=== PATIENT | male | born 1985 | race Caucasian/White ===

== ENCOUNTER 2023-08-08 16:05 | Emergency (ER) | payer BC, SELFPAY ==
[2023-08-08 16:10] VITALS: BP 143/96; PULSE 81; RESP 18; TEMP 36.1; O2SAT 97; BMI 40.2
--- NOTE | 2023-08-08 16:38 | ED_ITS ---
HPI - Eye Problem General Chief complaint: Eye Problems Stated complaint: R eye injury Time Seen by Provider: 08/08/23 16:21 History of Present Illness HPI Narrative: This 38-year-old male comes in with an injury to his right eye. He was working on a deck and a crowbar flipped up and hit him in the right eye. He reports some blurry vision and arrives with a little bit of blood in the lower aspect of the anterior chamber of his right eye. He does not have any difficulty moving his eyes and there is no sign of swelling, tearing, or scleral erythema. Related Data Home Medications ?Medication ?Instructions ?Recorded ?Confirmed fluoxetine 40 mg capsule 40 mg PO DAILY 08/08/23 08/08/23 lisinopril 20 1 tab PO DAILY 08/08/23 08/08/23 mg-hydrochlorothiazide 25 mg tablet Previous Rx's ?Medication ?Instructions ?Recorded atropine 1 % eye drops 1 drp ophthalmic (eye) TID #5 mL 08/08/23 brimonidine 0.2 % eye drops 1 drp ophthalmic (eye) TID #5 mL 08/08/23 prednisolone acetate 1 % eye 1 drp ophthalmic (eye) TID #5 mL 08/08/23 drops,suspension Allergies Allergy/AdvReac Type Severity Reaction Status Date / Time Sulfa (Sulfonamide Allergy Verified 08/08/23 16:15 Antibiotics) sulfamethoxazole Allergy Verified 08/08/23 16:15 [From Bactrim] trimethoprim [From Bactrim] Allergy Verified 08/08/23 16:15 Review of Systems Status of ROS: Reports: 10 or more systems reviewed and unremarkable except as noted in History and below Narrative: Constitutional: No fevers, no weight gain or loss. Eyes: No discharge. Trauma to the right eye as described above. HENT: No congestion, no sore throat, no ear pain. Cardiovascular: No chest pain, no palpitations. Respiratory: No shortness of breath, no wheezes, no cough. Gastrointestinal: No abdominal pain, no vomiting, no diarrhea. Genitourinary: No dysuria, no hematuria. Musculoskeletal: Normal range of motion. Skin: No rashes, no pruritis. Neurological: No dizziness, weakness, sensory change, speech change. Endo/Heme/Allergies: No bruising or bleeding. No polydipsia. Pysch: no suicidality, no anxiety, no insomnia. All other systems reviewed and are negative. Exam Narrative: Exam Narrative: Constitutional: Well-developed, well-nourished, no acute distress. HEENT: Normocephalic, atraumatic. The right eye has small amount of blood in the lower aspect of the anterior chamber typical of a hyphema. Funduscopic exam is normal bilaterally. There is no sign of entrapment or compartment syndrome. Neck: Normal range of motion. Nontender. Supple. Heart: Intact distal pulses. Lungs: No chest discomfort. No wheezes, rhonchi, or rales. Abdomen: Nontender. Back: Normal range of motion. Extremities: Normal range of motion. No injury. Skin: Intact. No rash. Warm. No erythema or pallor. Neurologic: No altered sensation. No weakness. Alert and oriented. Psychiatric: No suicidality. No anxiety or depression. No insomnia. Nursing notes and vitals signs are reviewed. Const: Vital Signs, click to edit/add: Vital Signs - 24 hr 08/08/23 16:10 Temperature 96.9 F L Pulse Rate [Right Pulse Oximeter] 81 Respiratory Rate 18 Blood Pressure [Ri ght Upper Arm] 143/96 H Pulse Oximetry 97 Oxygen Delivery Me thod Room Air Course Vital Signs Vital signs: Initial Vital Signs Temperature 96.9 F L 08/08/23 16:10 Temperature Source Temporal Artery Scan 08/08/23 16:10 Pulse Rate 81 08/08/23 16:10 Pulse Rhythm Regular 08/08/23 16:10 Respiratory Rate 18 08/08/23 16:10 Blood Pressure 143/96 H 08/08/23 16:10 Blood Pressure Mean 111 H 08/08/23 16:10 Blood Pressure Position Sitting 08/08/23 16:10 Pulse Oximetry 97 08/08/23 16:10 Oxygen Delivery Method Room Air 08/08/23 16:10 Vital Signs Temperature 96.9 F L 08/08/23 16:10 Pulse Rate 81 08/08/23 16:10 Respiratory Rate 18 08/08/23 16:10 Blood Pressure 143/96 H 08/08/23 16:10 Pulse Oximetry 97 08/08/23 16:10 Oxygen Delivery Method Room Air 08/08/23 16:10 Temperature 96.9 F L 08/08/23 16:10 Pulse Rate 81 08/08/23 16:10 Respiratory Rate 18 08/08/23 16:10 Blood Pressure 143/96 H 08/08/23 16:10 Pulse Oximetry 97 08/08/23 16:10 Oxygen Delivery Method Room Air 08/08/23 16:10 MDM - Eye Problem MDM Narrative Medical decision making narrative: This patient comes in with an injury to his right eye resulting in a hyphema. I was able to connect with Mumtaz Carmona at [facility]. He recommended medications including atropine 1% t.i.d., prednisolone acetate 1% t.i.d., and brimonidine 0.2% t.i.d. Dr. Carmona will see the patient tomorrow morning at 9:00 a.m. for further evaluation. The patient is recommended to wear a firm patch which we do not have available here. I advised him to pick 1 up at the pharmacy. He is also instructed not to use any anticoagulants including aspirin, Aleve, or ibuprofen. He should only use Tylenol for pain relief if needed. Discharge Plan Discharge Clinical Impression: Hyphema Patient Disposition: Home, Self-Care Condition: Unchanged Additional Instructions: Wear a firm patch over the right eye to avoid any contact. No vigorous activity. Use medications as prescribed and follow-up with Dr. Mumtaz Carmona at the [facility] tomorrow morning at 9:00 a.m.. Prescriptions: New atropine 1 % drops 1 drp ophthalmic (eye) TID Qty: 5 0RF prednisolone acetate 1 % drops,suspension 1 drp ophthalmic (eye) TID Qty: 5 0RF brimonidine 0.2 % drops 1 drp ophthalmic (eye) TID Qty: 5 0RF Rx Instructions: administer approximately 8 hours apart No Action fluoxetine 40 mg capsule 40 mg PO DAILY lisinopril-hydrochlorothiazide 20-25 mg tablet 1 tab PO DAILY Stand Alone Forms: [facility] Info Instructions
== END 2023-08-08 17:15 | disposition home or self-care (01) ==
LOC: ED 17:14
PROVIDERS: Emergency Provider Emergency Medicine Emergency Medical Services
DX: H21.01 Hyphema, right eye (principal)
CPT/HCPCS: 99283; 99284